=== PATIENT | male | born 1955 | race Caucasian/White ===

== ENCOUNTER 2022-03-10 10:51 | Outpatient (RCR) | payer OTHER, SELFPAY ==
--- NOTE | 2022-03-06 16:27 | ONC.NURNOTE ---
Authorization copied forward from Client Salon Coordinator. Patient: Dimitri Ventura Martin : 1955 Age/Sex: 66/M Unit#: [id number] Account#: Multiple Room/Bed: User: Wendi Ramirez Date: 09/30/21 10:33 Type: Eligibility Determination Note... Received request for prior auth for Whitney ([id number]). Per [employer] this has been approved for 4 doses. -10/03/2022. Auth # [id number]
[2022-03-10 11:19] LABS: Basophils Absolute Auto 0.01 K/uL (0.00-0.30); Basophils Percent Auto 0.2 % (0.0-3.0); Eosinophils Absolute Auto 0.13 K/uL (0.00-0.50); Eosinophils Percent Auto 2.7 % (0.0-7.0); Immature Granulocytes Abs Auto 0.01 K/uL (0.00-0.30); Lymphocytes Absolute Auto 1.21 K/uL (0.90-2.90); Lymphocytes Percent Auto 25.2 % (20-44); Mean Corpuscular HGB Conc 33 gm/dL (32-36); Mean Corpuscular Hemoglobin 31 pg (26-34); Mean Corpuscular Volume 93 fL (80-100); Monocytes Percent Auto 12.1 % (0.0-11.0); Neutrophils Absolute Auto 2.86 K/uL (1.7-7.0); Neutrophils Percent Auto 59.6 % (42.0-72.0); Platelet Count* 181 K/uL (140-440); Red Blood Count 4.21 m/uL (4.30-5.90)
[2022-03-10 11:21] LABS: Slide Review Reflex No
[2022-03-10 11:31] LABS: Albumin* 4.3 g/dL (3.3-5.0); Chloride* 109 mmol/L (96-114); Potassium* 4.1 mmol/L (3.6-5.1); Sodium* 137 mmol/L (135-149)
[2022-03-10 11:33] LABS: Creatinine* 0.8 mg/dL (0.5-1.5); Est. Creatinine Clearance* 126.06; Estimated Glomerular Filt Rate 97 ml/min
[2022-03-10 11:34] LABS: Alanine Aminotransferase* 21 U/L (4-50); Alkaline Phosphatase* 85 U/L (40-150); Aspartate Amino Transferase* 28 U/L (12-35); Bilirubin Total* 0.7 mg/dL (0.1-1.5); Blood Urea Nitrogen* 21 mg/dL (7-30); Carbon Dioxide* 23 mmol/L (20-32); Glucose* 144 mg/dL (60-115); Total Protein* 7.3 g/dL (6.0-8.3)
[2022-03-10 11:35] LABS: Calcium* 9.3 mg/dL (8.4-10.6)
--- NOTE | 2022-03-10 13:07 | ONC.NURNOTE ---
Lab results called to Dimitri as stable to be reviewed by Dr Khan at next clinic due for lab 04/07 and clinic 04/08 reports no specific concerns today reports painful lupron injection several doses ago
== END 2022-03-15 23:59 | disposition home or self-care (01) ==
LOC: CCIC 10:51
PROVIDERS: PCP Internal Medicine; Visit Provider Internal Medicine Hematology & Oncology
DX: C61 Malignant neoplasm of prostate (principal)
CPT/HCPCS: 36415; 80053; 85025

== ENCOUNTER 2022-05-08 12:03 | Outpatient (CLI) | payer OTHER, SELFPAY ==
[2022-05-08 17:00] LABS: Cholesterol* 160 mg/dL (90-199); Creatine Kinase* 213 U/L (54-186)
[2022-05-08 17:01] LABS: Alanine Aminotransferase* 18 U/L (4-50); HDL Cholesterol* 59 mg/dL (>=40); LDL Cholesterol Calculated 72 mg/dL (<100); Triglycerides* 143 mg/dL (40-149)
== END 2022-05-08 12:04 | disposition home or self-care (01) ==
PROVIDERS: PCP Internal Medicine; Visit Provider Internal Medicine Cardiovascular Disease
DX: I25.10 Atherosclerotic heart disease of native coronary artery without angina pectoris (principal); I49.8 Other specified cardiac arrhythmias; I10 Essential (primary) hypertension
CPT/HCPCS: 80061; 82550; 84460

== ENCOUNTER 2022-05-21 08:14 | Outpatient (RCR) | payer OTHER, SELFPAY ==
--- NOTE | 2022-05-19 09:00 | CRLHL7_ITS ---
For Patients: As a result of the Century Cures Act, medical imaging exams and procedure reports are released immediately into your electronic medical record. You may view this report before your referring provider. If you have questions, please contact your health care provider. MYOCARDIAL PERFUSION SCAN CLINICAL HISTORY: Coronary artery disease and arrhythmia. TECHNIQUE: (Resting SPECT and Stress Gated SPECT with wall motion and ejection fraction) Stress: Pharmacologic - Regadenoson (0.4 mg) Dose (Stress/Rest): 41.1 mCi / 43.1 mCi Tc-99m Sestamibi (two-day protocol) Comparison: None FINDINGS: There is good uptake of the radiotracer by the left ventricle. There is no left ventricular dilatation. No significant fixed or reversible changes are identified throughout the left ventricle. Gated images demonstrate left ventricular ejection fraction to visually calculate at 65 percent. There is no focal wall motion abnormality. IMPRESSION: 1. No evidence for significant myocardial ischemia or infarction. 2. Normal left ventricular ejection fraction is identified at 65 percent. This study was jointly reviewed by radiology and cardiology. Jelani Gómez M.D. Diagnostic/Nuclear Medicine Radiologist [facility] [email or web address] ANTUNEZ M.D. Department of Cardiology keyanna/Dictated by: Jelani Gómez MD @ 05/21/2022 2:31:00 PM (Electronically Signed)
[2022-05-21] MEDS: SODIUM CHLORIDE 0.9 % (FLUSH) 10 ML SYRINGE IVF (08:55)
[2022-05-21] MEDS: REGADENOSON 0.4 MG/5 ML SYRINGE IVP (08:55)
[2022-05-21 10:09] VITALS: BP 106/71; PULSE 92
--- NOTE | 2022-05-21 12:15 | PM.ST ---
Stress Test Note Date Date Seen: 05/21/22 Date of test: 05/21/22 Providers Referring provider: Man Arevalo Primary care provider: Jelani Hendrickson Stress test physician: Stella Chauhan Stress Test Note Stress test ordered: Lexiscan Indication for test: CAD Stress test medicine: Lexiscan Results discussion: Resting EKG: Sinus rhythm, 85 beats per minute. Appears that there is possibly nonspecific intra conduction delay. Resting blood pressure 127/86 Stress test: Plan patient had a non walking Lexiscan. Besides feeling some mild flushing he tolerated this quite well. There were no concerning EKG changes during monitoring, no rhythm is. No concerning blood pressure changes. Patient will have post stress imaging done. Impression: Subjectively negative, objectively negative EKG portion of this Lexiscan. Patient discharged to home after imaging was done. He will wait full formal report once this has been reviewed by Cardiology.
== END 2022-06-12 10:21 | disposition home or self-care (01) ==
LOC: STRESS 08:14
PROVIDERS: PCP Internal Medicine; Visit Provider Family Medicine
DX: I25.10 Atherosclerotic heart disease of native coronary artery without angina pectoris (principal); Z95.810 Presence of automatic (implantable) cardiac defibrillator; I49.9 Cardiac arrhythmia, unspecified; I10 Essential (primary) hypertension
CPT/HCPCS: 78452; 93016; 93017; A9500; J2785

== ENCOUNTER 2022-07-10 12:00 | Outpatient (RCR) | payer OTHER, SELFPAY ==
[2022-04-07 11:40] LABS: Basophils Absolute Auto 0.01 K/uL (0.00-0.30); Basophils Percent Auto 0.2 % (0.0-3.0); Eosinophils Absolute Auto 0.18 K/uL (0.00-0.50); Eosinophils Percent Auto 3.8 % (0.0-7.0); Hematocrit 38.5 % (37.0-53.0); Hemoglobin* 12.8 gm/dL (13.5-17.5); Immature Granulocytes Abs Auto 0.01 K/uL (0.00-0.30); Lymphocytes Absolute Auto 1.21 K/uL (0.90-2.90); Lymphocytes Percent Auto 25.5 % (20-44); Mean Corpuscular HGB Conc 33 gm/dL (32-36); Mean Corpuscular Hemoglobin 31 pg (26-34); Mean Corpuscular Volume 94 fL (80-100); Monocytes Percent Auto 10.5 % (0.0-11.0); Neutrophils Absolute Auto 2.84 K/uL (1.7-7.0); Neutrophils Percent Auto 59.8 % (42.0-72.0); Platelet Count* 192 K/uL (140-440); RDW Coefficient of Variation % 13.1 % (11.5-15.5); Red Blood Count 4.09 m/uL (4.30-5.90); White Blood Count* 4.75 K/uL (4.50-11.00)
[2022-04-07 11:51] LABS: Slide Review Reflex No
[2022-04-07 11:57] LABS: Albumin* 4.3 g/dL (3.3-5.0); Chloride* 103 mmol/L (96-114); Potassium* 4.3 mmol/L (3.6-5.1); Sodium* 138 mmol/L (135-149)
[2022-04-07 11:59] LABS: Bilirubin Total* 0.7 mg/dL (0.1-1.5); Creatinine* 0.8 mg/dL (0.5-1.5); Estimated Glomerular Filt Rate 97 ml/min
[2022-04-07 12:00] LABS: Alanine Aminotransferase* 23 U/L (4-50); Alkaline Phosphatase* 78 U/L (40-150); Aspartate Amino Transferase* 28 U/L (12-35); Blood Urea Nitrogen* 18 mg/dL (7-30); Calcium* 9.3 mg/dL (8.4-10.6); Carbon Dioxide* 25 mmol/L (20-32); Glucose* 206 mg/dL (60-115); Total Protein* 7.2 g/dL (6.0-8.3)
[2022-04-07 12:42] LABS: PSA Diagnostic* < 0.06 ng/mL (0.10-4.00)
[2022-04-08] MEDS: LEUPROLIDE ACETATE 22.5 MG (SQ) SYRINGE SUBCUT (15:39)
--- NOTE | 2022-04-27 10:07 | ONC.NURNOTE ---
Clarification needed for RX Xtandi with [facility] confirms Dimitri current dose of 120 mg/da (3X40mg) new RX needed for [facility] because they still have the 160 mg dose, and they state that the last RX dose change on 07/28/21 was not entered into their pharmacy patient has plenty of medication on hand since he has been receiving an extra #30 tabs each month
[2022-05-06 10:24] LABS: Basophils Absolute Auto 0.03 K/uL (0.00-0.30); Basophils Percent Auto 0.6 % (0.0-3.0); Eosinophils Absolute Auto 0.28 K/uL (0.00-0.50); Hematocrit 38.2 % (37.0-53.0); Hemoglobin* 12.8 gm/dL (13.5-17.5); Immature Granulocytes Abs Auto 0.01 K/uL (0.00-0.30); Lymphocytes Absolute Auto 1.17 K/uL (0.90-2.90); Lymphocytes Percent Auto 25.2 % (20-44); Mean Corpuscular HGB Conc 34 gm/dL (32-36); Mean Corpuscular Hemoglobin 31 pg (26-34); Mean Corpuscular Volume 94 fL (80-100); Monocytes Percent Auto 10.3 % (0.0-11.0); Neutrophils Absolute Auto 2.67 K/uL (1.7-7.0); Neutrophils Percent Auto 57.7 % (42.0-72.0); Platelet Count* 181 K/uL (140-440); RDW Coefficient of Variation % 12.6 % (11.5-15.5); Red Blood Count 4.08 m/uL (4.30-5.90); White Blood Count* 4.64 K/uL (4.50-11.00)
[2022-05-06 10:28] LABS: Slide Review Reflex No
[2022-05-06 10:44] LABS: Albumin* 4.3 g/dL (3.3-5.0); Chloride* 104 mmol/L (96-114); Sodium* 137 mmol/L (135-149)
[2022-05-06 10:45] LABS: Potassium* 4.3 mmol/L (3.6-5.1)
[2022-05-06 10:47] LABS: Alkaline Phosphatase* 87 U/L (40-150); Aspartate Amino Transferase* 24 U/L (12-35); Bilirubin Total* 0.6 mg/dL (0.1-1.5); Blood Urea Nitrogen* 18 mg/dL (7-30); Carbon Dioxide* 24 mmol/L (20-32); Creatinine* 0.8 mg/dL (0.5-1.5); Estimated Glomerular Filt Rate 97 ml/min; Total Protein* 7.1 g/dL (6.0-8.3)
[2022-05-06 10:48] LABS: Alanine Aminotransferase* 18 U/L (4-50); Calcium* 9.5 mg/dL (8.4-10.6); Glucose* 166 mg/dL (60-115)
[2022-06-03 10:21] LABS: Basophils Absolute Auto 0.03 K/uL (0.00-0.30); Basophils Percent Auto 0.6 % (0.0-3.0); Eosinophils Percent Auto 4.1 % (0.0-7.0); Hematocrit 38.4 % (37.0-53.0); Hemoglobin* 12.8 gm/dL (13.5-17.5); Immature Granulocytes Abs Auto 0.01 K/uL (0.00-0.30); Lymphocytes Absolute Auto 1.41 K/uL (0.90-2.90); Lymphocytes Percent Auto 28.7 % (20-44); Mean Corpuscular HGB Conc 33 gm/dL (32-36); Mean Corpuscular Hemoglobin 31 pg (26-34); Mean Corpuscular Volume 94 fL (80-100); Monocytes Percent Auto 11.4 % (0.0-11.0); Platelet Count* 187 K/uL (140-440); RDW Coefficient of Variation % 12.6 % (11.5-15.5); Red Blood Count 4.09 m/uL (4.30-5.90); White Blood Count* 4.91 K/uL (4.50-11.00)
[2022-06-03 10:22] LABS: Slide Review Reflex No
[2022-06-03 10:39] LABS: Albumin* 4.5 g/dL (3.3-5.0); Chloride* 101 mmol/L (96-114); Potassium* 4.3 mmol/L (3.6-5.1); Sodium* 136 mmol/L (135-149)
[2022-06-03 10:41] LABS: Creatinine* 0.7 mg/dL (0.5-1.5); Estimated Glomerular Filt Rate 101 ml/min
[2022-06-03 10:42] LABS: Alanine Aminotransferase* 19 U/L (4-50); Alkaline Phosphatase* 88 U/L (40-150); Aspartate Amino Transferase* 25 U/L (12-35); Bilirubin Total* 0.5 mg/dL (0.1-1.5); Blood Urea Nitrogen* 20 mg/dL (7-30); Calcium* 9.6 mg/dL (8.4-10.6); Carbon Dioxide* 25 mmol/L (20-32); Glucose* 151 mg/dL (60-115); Total Protein* 7.3 g/dL (6.0-8.3)
--- NOTE | 2022-06-03 14:19 | ONC.NURNOTE ---
Called and left a message on patients wifes phone. That his labs are normal. continue to take the 4 pills [160mg]. pt has a lab apt on 06/30 which will include a PSA. His last PSA was normal. Pt has a apt with Erin on 07/01.
[2022-06-30 10:48] LABS: Basophils Absolute Auto 0.02 K/uL (0.00-0.30); Basophils Percent Auto 0.4 % (0.0-3.0); Eosinophils Absolute Auto 0.18 K/uL (0.00-0.50); Eosinophils Percent Auto 3.6 % (0.0-7.0); Hematocrit 39.1 % (37.0-53.0); Hemoglobin* 12.8 gm/dL (13.5-17.5); Immature Granulocytes Abs Auto 0.01 K/uL (0.00-0.30); Immature Granulocytes Pct Auto 0.2 %; Lymphocytes Absolute Auto 1.09 K/uL (0.90-2.90); Lymphocytes Percent Auto 21.9 % (20-44); Mean Corpuscular HGB Conc 33 gm/dL (32-36); Mean Corpuscular Hemoglobin 31 pg (26-34); Mean Corpuscular Volume 94 fL (80-100); Monocytes Percent Auto 9.8 % (0.0-11.0); Neutrophils Absolute Auto 3.19 K/uL (1.7-7.0); Neutrophils Percent Auto 64.1 % (42.0-72.0); Platelet Count* 185 K/uL (140-440); RDW Coefficient of Variation % 12.5 % (11.5-15.5); Red Blood Count 4.14 m/uL (4.30-5.90); White Blood Count* 4.98 K/uL (4.50-11.00)
[2022-06-30 10:52] LABS: Slide Review Reflex No
[2022-06-30 11:14] LABS: Albumin* 4.4 g/dL (3.3-5.0)
[2022-06-30 11:15] LABS: Chloride* 103 mmol/L (96-114); Potassium* 4.1 mmol/L (3.6-5.1); Sodium* 137 mmol/L (135-149)
[2022-06-30 11:17] LABS: Aspartate Amino Transferase* 28 U/L (12-35); Bilirubin Total* 0.7 mg/dL (0.1-1.5); Carbon Dioxide* 25 mmol/L (20-32); Creatinine* 0.8 mg/dL (0.5-1.5); Estimated Glomerular Filt Rate 97 ml/min; Total Protein* 7.1 g/dL (6.0-8.3)
[2022-06-30 11:18] LABS: Alanine Aminotransferase* 26 U/L (4-50); Alkaline Phosphatase* 87 U/L (40-150); Blood Urea Nitrogen* 17 mg/dL (7-30); Calcium* 9.3 mg/dL (8.4-10.6); Glucose* 179 mg/dL (60-115)
[2022-06-30 11:51] LABS: PSA Diagnostic* < 0.06 ng/mL (0.10-4.00)
--- NOTE | 2022-07-02 16:05 | ONC.NURNOTE ---
[employer] patient assist for Xtandi re-enrollment forms and all needed documentation was received- as confirmed by [employer] today application to be reviewed by 2022
[2022-07-10 13:08] VITALS: BP 126/80; PULSE 81; RESP 20; TEMP 37; O2SAT 97
[2022-07-10] MEDS: LEUPROLIDE ACETATE 22.5 MG (SQ) SYRINGE SUBCUT (13:12)
== END 2022-10-04 23:59 | disposition home or self-care (01) ==
LOC: CCIC 12:00
PROVIDERS: PCP Internal Medicine; Referring Provider Internal Medicine; Visit Provider Internal Medicine Hematology & Oncology
DX: C61 Malignant neoplasm of prostate (principal); C79.51 Secondary malignant neoplasm of bone
CPT/HCPCS: 36415; 80053; 84153; 85025; 96372; 96401; 96413; 99212; 99213; 99214; J9217

== ENCOUNTER 2023-01-21 13:30 | Outpatient (RCR) | payer OTHER, SELFPAY ==
--- NOTE | 2022-10-16 13:42 | ONC.NURNOTE ---
GINGER was looking into coverage of his eligard injection and found that insurance is inactive. Radar Operator called spouse/patient and they note that they are working on getting ahold of someone about this with insurance. They will call us with insurance information once obtained.
--- NOTE | 2022-10-16 14:31 | URNOTE ---
Request received for authorization for Alban([id number]). Prior authorization is approved from 10/19/2022 to 10/20/2023 from [facility] via [employer] Rep. Princess Lockwood Ref#[id number].
[2022-10-19 14:25] LABS: Basophils Absolute Auto 0.02 K/uL (0.00-0.30); Basophils Percent Auto 0.4 % (0.0-3.0); Eosinophils Absolute Auto 0.19 K/uL (0.00-0.50); Eosinophils Percent Auto 3.5 % (0.0-7.0); Hematocrit 38.8 % (37.0-53.0); Immature Granulocytes Abs Auto 0.02 K/uL (0.00-0.30); Immature Granulocytes Pct Auto 0.4 %; Lymphocytes Absolute Auto 1.56 K/uL (0.90-2.90); Lymphocytes Percent Auto 28.8 % (20-44); Mean Corpuscular HGB Conc 34 gm/dL (32-36); Mean Corpuscular Hemoglobin 31 pg (26-34); Mean Corpuscular Volume 93 fL (80-100); Monocytes Percent Auto 8.7 % (0.0-11.0); Neutrophils Absolute Auto 3.16 K/uL (1.7-7.0); Neutrophils Percent Auto 58.2 % (42.0-72.0); Platelet Count* 174 K/uL (140-440); RDW Coefficient of Variation % 12.9 % (11.5-15.5); Red Blood Count 4.19 m/uL (4.30-5.90); White Blood Count* 5.42 K/uL (4.50-11.00)
[2022-10-19 14:37] LABS: Slide Review Reflex No
[2022-10-19 14:38] LABS: Albumin* 4.4 g/dL (3.3-5.0); Chloride* 108 mmol/L (96-114); Sodium* 137 mmol/L (135-149)
[2022-10-19 14:40] LABS: Bilirubin Total* 0.7 mg/dL (0.1-1.5); Carbon Dioxide* 24 mmol/L (20-32); Creatinine* 0.7 mg/dL (0.5-1.5); Estimated Glomerular Filt Rate 100 ml/min
[2022-10-19 14:41] LABS: Alanine Aminotransferase* 27 U/L (4-50); Alkaline Phosphatase* 81 U/L (40-150); Aspartate Amino Transferase* 25 U/L (12-35); Blood Urea Nitrogen* 15 mg/dL (7-30); Calcium* 9.4 mg/dL (8.4-10.6); Glucose* 179 mg/dL (60-115); Total Protein* 7.4 g/dL (6.0-8.3)
[2022-10-19] MEDS: LEUPROLIDE ACETATE 22.5 MG (SQ) SYRINGE SUBCUT (15:55)
[2022-10-19 16:21] LABS: PSA Diagnostic* < 0.06 ng/mL (0.10-4.00)
[2023-01-21 14:02] LABS: Basophils Absolute Auto 0.02 K/uL (0.00-0.30); Basophils Percent Auto 0.3 % (0.0-3.0); Eosinophils Absolute Auto 0.06 K/uL (0.00-0.50); Eosinophils Percent Auto 0.8 % (0.0-7.0); Hematocrit 40.5 % (37.0-53.0); Hemoglobin* 13.7 gm/dL (13.5-17.5); Immature Granulocytes Abs Auto 0.01 K/uL (0.00-0.30); Immature Granulocytes Pct Auto 0.1 %; Lymphocytes Percent Auto 19.6 % (20-44); Mean Corpuscular HGB Conc 34 gm/dL (32-36); Mean Corpuscular Hemoglobin 31 pg (26-34); Mean Corpuscular Volume 93 fL (80-100); Monocytes Percent Auto 8.1 % (0.0-11.0); Neutrophils Absolute Auto 5.17 K/uL (1.7-7.0); Neutrophils Percent Auto 71.1 % (42.0-72.0); Platelet Count* 169 K/uL (140-440); RDW Coefficient of Variation % 12.7 % (11.5-15.5); Red Blood Count 4.38 m/uL (4.30-5.90); White Blood Count* 7.28 K/uL (4.50-11.00)
[2023-01-21 14:07] LABS: Slide Review Reflex No
[2023-01-21 14:18] LABS: Albumin* 4.6 g/dL (3.3-5.0); Chloride* 106 mmol/L (96-114)
[2023-01-21 14:19] LABS: Potassium* 3.9 mmol/L (3.6-5.1); Sodium* 136 mmol/L (135-149)
[2023-01-21 14:21] LABS: Alkaline Phosphatase* 81 U/L (40-150); Aspartate Amino Transferase* 34 U/L (12-35); Blood Urea Nitrogen* 16 mg/dL (7-30); Carbon Dioxide* 20 mmol/L (20-32); Creatinine* 0.9 mg/dL (0.5-1.5); Estimated Glomerular Filt Rate 93 ml/min; Total Protein* 7.7 g/dL (6.0-8.3)
[2023-01-21 14:22] LABS: Alanine Aminotransferase* 32 U/L (4-50); Calcium* 9.7 mg/dL (8.4-10.6); Glucose* 159 mg/dL (60-115)
[2023-01-21 14:58] LABS: PSA Diagnostic* < 0.06 ng/mL (0.10-4.00)
[2023-01-21] MEDS: LEUPROLIDE ACETATE 22.5 MG (SQ) SYRINGE SUBCUT (15:08)
== END 2023-04-17 23:59 | disposition home or self-care (01) ==
LOC: CCIC 13:30
PROVIDERS: Physician Assistant; PCP Internal Medicine; Referring Provider Internal Medicine; Visit Provider Internal Medicine Hematology & Oncology
DX: C61 Malignant neoplasm of prostate (principal); C79.51 Secondary malignant neoplasm of bone; D72.819 Decreased white blood cell count, unspecified; R23.2 Flushing; I49.8 Other specified cardiac arrhythmias; F41.9 Anxiety disorder, unspecified
CPT/HCPCS: 36415; 80053; 84153; 85025; 96401; 99212; 99214; 99215; J9217

== ENCOUNTER 2023-10-11 13:32 | Outpatient (CLI) | payer OTHER, SELFPAY | END 2023-10-11 13:33 | disposition home or self-care (01) | LOC: RAD 13:34 | PROVIDERS: PCP Internal Medicine; Visit Provider Internal Medicine Cardiovascular Disease | DX: R06.00 Dyspnea, unspecified (principal); I25.10 Atherosclerotic heart disease of native coronary artery without angina pectoris | CPT/HCPCS: 93306 ==

== ENCOUNTER 2023-10-18 13:15 | Outpatient (RCR) | payer OTHER, SELFPAY ==
[2023-04-21 13:42] LABS: Basophils Absolute Auto 0.03 K/uL (0.00-0.30); Basophils Percent Auto 0.6 % (0.0-3.0); Eosinophils Absolute Auto 0.21 K/uL (0.00-0.50); Hematocrit 41.5 % (37.0-53.0); Hemoglobin* 13.6 gm/dL (13.5-17.5); Immature Granulocytes Abs Auto 0.04 K/uL (0.00-0.30); Immature Granulocytes Pct Auto 0.8 %; Lymphocytes Absolute Auto 1.56 K/uL (0.90-2.90); Lymphocytes Percent Auto 29.5 % (20-44); Mean Corpuscular HGB Conc 33 gm/dL (32-36); Mean Corpuscular Hemoglobin 32 pg (26-34); Mean Corpuscular Volume 97 fL (80-100); Monocytes Percent Auto 11.2 % (0.0-11.0); Neutrophils Absolute Auto 2.86 K/uL (1.7-7.0); Neutrophils Percent Auto 53.9 % (42.0-72.0); Platelet Count* 193 K/uL (140-440); RDW Coefficient of Variation % 12.7 % (11.5-15.5); Red Blood Count 4.29 m/uL (4.30-5.90); White Blood Count* 5.29 K/uL (4.50-11.00)
[2023-04-21 13:58] LABS: Chloride* 105 mmol/L (96-114); Slide Review Reflex No
[2023-04-21 13:59] LABS: Albumin* 4.5 g/dL (3.3-5.0); Potassium* 4.2 mmol/L (3.6-5.1); Sodium* 136 mmol/L (135-149)
[2023-04-21 14:02] LABS: Alanine Aminotransferase* 31 U/L (4-50); Alkaline Phosphatase* 67 U/L (40-150); Anion Gap 11 mEq/L (7-15); Aspartate Amino Transferase* 36 U/L (12-35); Bilirubin Total* 0.8 mg/dL (0.1-1.5); Blood Urea Nitrogen* 17 mg/dL (7-30); Calcium* 9.7 mg/dL (8.4-10.6); Carbon Dioxide* 20 mmol/L (20-32); Creatinine* 0.8 mg/dL (0.5-1.5); Estimated Glomerular Filt Rate 96 ml/min; Glucose* 115 mg/dL (60-115); Total Protein* 7.8 g/dL (6.0-8.3)
[2023-04-21 14:33] LABS: PSA Diagnostic* < 0.06 ng/mL (0.10-4.00)
[2023-04-21] MEDS: LEUPROLIDE ACETATE 22.5 MG (SQ) SYRINGE SUBCUT (15:02)
[2023-07-26 12:03] LABS: Basophils Absolute Auto 0.01 K/uL (0.00-0.30); Basophils Percent Auto 0.2 % (0.0-3.0); Eosinophils Absolute Auto 0.24 K/uL (0.00-0.50); Eosinophils Percent Auto 4.3 % (0.0-7.0); Hematocrit 41.7 % (37.0-53.0); Hemoglobin* 13.5 gm/dL (13.5-17.5); Immature Granulocytes Abs Auto 0.05 K/uL (0.00-0.30); Immature Granulocytes Pct Auto 0.9 %; Lymphocytes Absolute Auto 1.26 K/uL (0.90-2.90); Lymphocytes Percent Auto 22.7 % (20-44); Mean Corpuscular HGB Conc 32 gm/dL (32-36); Mean Corpuscular Hemoglobin 31 pg (26-34); Mean Corpuscular Volume 97 fL (80-100); Monocytes Percent Auto 9.4 % (0.0-11.0); Neutrophils Absolute Auto 3.46 K/uL (1.7-7.0); Neutrophils Percent Auto 62.5 % (42.0-72.0); Platelet Count* 132 K/uL (140-440); RDW Coefficient of Variation % 12.3 % (11.5-15.5); White Blood Count* 5.54 K/uL (4.50-11.00)
[2023-07-26 12:05] LABS: Slide Review Reflex No
[2023-07-26 12:20] LABS: Albumin* 4.6 g/dL (3.3-5.0); Chloride* 105 mmol/L (96-114); Sodium* 134 mmol/L (135-149)
[2023-07-26 12:21] LABS: Potassium* 4.3 mmol/L (3.6-5.1)
[2023-07-26 12:23] LABS: Bilirubin Total* 0.9 mg/dL (0.1-1.5); Creatinine* 0.8 mg/dL (0.5-1.5); Estimated Glomerular Filt Rate 96 ml/min
[2023-07-26 12:24] LABS: Alanine Aminotransferase* 29 U/L (4-50); Alkaline Phosphatase* 76 U/L (40-150); Anion Gap 11 mEq/L (7-15); Aspartate Amino Transferase* 32 U/L (12-35); Blood Urea Nitrogen* 16 mg/dL (7-30); Calcium* 9.1 mg/dL (8.4-10.6); Carbon Dioxide* 18 mmol/L (20-32); Glucose* 223 mg/dL (60-115); Total Protein* 7.5 g/dL (6.0-8.3)
[2023-07-26] MEDS: LEUPROLIDE ACETATE 22.5 MG (SQ) SYRINGE SUBCUT (13:00)
[2023-07-26 13:08] LABS: PSA Diagnostic* < 0.06 ng/mL (0.10-4.00)
--- NOTE | 2023-08-24 09:07 | ONC.NURNOTE ---
[facility] through 08/15/2024 patient notified
[2023-09-06 14:29] LABS: PSA Diagnostic* < 0.06 ng/mL (0.10-4.00)
--- NOTE | 2023-09-09 14:24 | ONC.NURNOTE ---
Xtandi 40 mg X 2 disp #60 with 3 refills called to [facility] as written by Dr Khan faxed rx was not received Rx written for #120- but pharmacy can only dispense 30 day supply
[2023-10-18 13:29] LABS: Basophils Absolute Auto 0.04 K/uL (0.00-0.30); Basophils Percent Auto 0.7 % (0.0-3.0); Eosinophils Absolute Auto 0.18 K/uL (0.00-0.50); Hematocrit 38.7 % (37.0-53.0); Hemoglobin* 12.8 gm/dL (13.5-17.5); Immature Granulocytes Abs Auto 0.01 K/uL (0.00-0.30); Immature Granulocytes Pct Auto 0.2 %; Lymphocytes Absolute Auto 1.93 K/uL (0.90-2.90); Lymphocytes Percent Auto 32.7 % (20-44); Mean Corpuscular HGB Conc 33 gm/dL (32-36); Mean Corpuscular Hemoglobin 31 pg (26-34); Mean Corpuscular Volume 93 fL (80-100); Monocytes Percent Auto 11.8 % (0.0-11.0); Neutrophils Absolute Auto 3.05 K/uL (1.7-7.0); Neutrophils Percent Auto 51.6 % (42.0-72.0); Platelet Count* 173 K/uL (140-440); RDW Coefficient of Variation % 13.2 % (11.5-15.5); Red Blood Count 4.18 m/uL (4.30-5.90); White Blood Count* 5.91 K/uL (4.50-11.00)
[2023-10-18 13:36] LABS: Slide Review Reflex No
[2023-10-18 13:43] LABS: Albumin* 4.4 g/dL (3.3-5.0); Chloride* 106 mmol/L (96-114)
[2023-10-18 13:44] LABS: Potassium* 3.9 mmol/L (3.6-5.1); Sodium* 138 mmol/L (135-149)
[2023-10-18 13:46] LABS: Anion Gap 9 mEq/L (7-15); Aspartate Amino Transferase* 27 U/L (12-35); Bilirubin Total* 0.5 mg/dL (0.1-1.5); Carbon Dioxide* 23 mmol/L (20-32); Creatinine* 0.7 mg/dL (0.5-1.5); Estimated Glomerular Filt Rate 100 ml/min
[2023-10-18 13:47] LABS: Alanine Aminotransferase* 24 U/L (4-50); Alkaline Phosphatase* 83 U/L (40-150); Blood Urea Nitrogen* 18 mg/dL (7-30); Calcium* 9.6 mg/dL (8.4-10.6); Glucose* 150 mg/dL (60-115); Total Protein* 7.6 g/dL (6.0-8.3)
[2023-10-18] MEDS: LEUPROLIDE ACETATE 22.5 MG (SQ) SYRINGE SUBCUT (14:05)
[2023-10-18 14:25] LABS: PSA Diagnostic* < 0.06 ng/mL (0.10-4.00)
--- NOTE | 2024-01-14 10:55 | URNOTE ---
Per Jerad at [facility], Prior auth is not required for Whitney ([id number]). Call ref #[id number]
== END 2023-10-18 23:59 | disposition home or self-care (01) ==
LOC: CCIC 13:15
PROVIDERS: PCP Internal Medicine; Referring Provider Internal Medicine; Visit Provider Internal Medicine Hematology & Oncology
DX: C61 Malignant neoplasm of prostate (principal); C79.51 Secondary malignant neoplasm of bone; R63.5 Abnormal weight gain; R60.9 Edema, unspecified; D70.9 Neutropenia, unspecified; I49.8 Other specified cardiac arrhythmias; Z95.810 Presence of automatic (implantable) cardiac defibrillator; F41.9 Anxiety disorder, unspecified
CPT/HCPCS: 36415; 80053; 84153; 85025; 96372; 96401; 99212; 99213; 99214; G0463; J9217

== ENCOUNTER 2023-10-19 07:56 | Outpatient (RCR) | payer OTHER, SELFPAY ==
--- NOTE | 2023-10-19 09:56 | W.PM.STED ---
Stress Test Note Date Date Seen: 10/19/23 Date of test: 10/19/23 Providers Referring provider: Guanako Camara Primary care provider: Jelani Hendrickson Stress test physician: Stella Chauhan Stress Test Note Stress test ordered: Lexiscan Indication for test: Atherosclerotic coronary artery disease Stress test medicine: Lexiscan Results discussion: Resting EKG: With sinus rhythm, 89 beats per minute. Resting blood pressure: 141/90 Stress test: Patient perform the Lexiscan via walking treadmill protocol. He felt his heart beat faster but not any pain with this. He completed the protocol without any difficulty. There was no arrhythmia, no ischemia seen on the EKG. He had artifact well walking. In recovery, no significant ischemic change noted. Blood pressure initial recovery was 161/109, did come down to 127/88 by the termination of monitoring. Patient had no significant symptoms during this test. Await nuclear images to couple this for a full formal diagnostic. Impression: Subjectively negative, objectively negative EKG portion of this Lexiscan. Follow up suggested: Patient will await the nuclear images to be read for full formal diagnostic. He will be discharged after his post rest images. He is currently in stable condition.
[2023-10-19 12:08] VITALS: BP 127/88; PULSE 99; RESP 18
[2023-10-19] MEDS: SODIUM CHLORIDE 0.9 % (FLUSH) 10 ML SYRINGE IVF (12:09)
[2023-10-19] MEDS: REGADENOSON 0.4 MG/5 ML SYRINGE IVP (12:09)
== END 2023-10-19 15:06 | disposition home or self-care (01) ==
LOC: STRESS 07:56
PROVIDERS: PCP Internal Medicine; Visit Provider Family Medicine
DX: I25.10 Atherosclerotic heart disease of native coronary artery without angina pectoris (principal)
CPT/HCPCS: 78452; 93016; 93017; A9500; J2785

== ENCOUNTER 2024-07-10 09:45 | Outpatient (RCR) | payer OTHER, SELFPAY ==
[2024-01-18 12:27] LABS: Basophils Absolute Auto 0.01 K/uL (0.00-0.30); Basophils Percent Auto 0.2 % (0.0-3.0); Eosinophils Absolute Auto 0.19 K/uL (0.00-0.50); Eosinophils Percent Auto 3.5 % (0.0-7.0); Hematocrit 39.7 % (37.0-53.0); Immature Granulocytes Abs Auto 0.02 K/uL (0.00-0.30); Immature Granulocytes Pct Auto 0.4 %; Lymphocytes Absolute Auto 1.66 K/uL (0.90-2.90); Lymphocytes Percent Auto 30.6 % (20-44); Mean Corpuscular HGB Conc 33 gm/dL (32-36); Mean Corpuscular Hemoglobin 31 pg (26-34); Mean Corpuscular Volume 96 fL (80-100); Monocytes Percent Auto 11.6 % (0.0-11.0); Neutrophils Absolute Auto 2.91 K/uL (1.7-7.0); Neutrophils Percent Auto 53.7 % (42.0-72.0); Platelet Count* 170 K/uL (140-440); RDW Coefficient of Variation % 12.9 % (11.5-15.5); Red Blood Count 4.15 m/uL (4.30-5.90); White Blood Count* 5.42 K/uL (4.50-11.00)
[2024-01-18 12:28] LABS: Albumin* 4.7 g/dL (3.3-5.0); Chloride* 105 mmol/L (96-114)
[2024-01-18 12:29] LABS: Potassium* 4.6 mmol/L (3.6-5.1); Sodium* 138 mmol/L (135-149)
[2024-01-18 12:30] LABS: Slide Review Reflex No
[2024-01-18 12:31] LABS: Anion Gap 3 mEq/L (7-15); Aspartate Amino Transferase* 30 U/L (12-35); Bilirubin Total* 0.9 mg/dL (0.1-1.5); Carbon Dioxide* 30 mmol/L (20-32); Creatinine* 0.8 mg/dL (0.5-1.5); Estimated Glomerular Filt Rate 96 ml/min
[2024-01-18 12:32] LABS: Alanine Aminotransferase* 28 U/L (4-50); Alkaline Phosphatase* 85 U/L (40-150); Blood Urea Nitrogen* 16 mg/dL (7-30); Calcium* 9.3 mg/dL (8.4-10.6); Glucose* 125 mg/dL (60-115); Total Protein* 7.9 g/dL (6.0-8.3)
[2024-01-18 13:04] LABS: PSA Diagnostic* < 0.06 ng/mL (0.10-4.00)
[2024-01-18] MEDS: LEUPROLIDE ACETATE 22.5 MG (SQ) SYRINGE SUBCUT (13:35)
--- NOTE | 2024-04-06 12:19 | ONC.NURNOTE ---
Patient's called today asking when patient is scheduled to be seen again and asking about a refill of his Xtandi. She reports the specialty pharmacy keeps calling stating they need a new prescription. Told them that patient is scheduled for labs, Dr. Khan, and his injection on 04/12. Spoke with M[facility] nurse navigator, she has a refill request for Dimitri and Dr. Khan has a refill request for him for the Xtandi. She stated that Dr. Khan will address it on Wednesday when she is back in the office. Updated patient and his about his Xtandi prescription, per his he has enough pills to get him to next week. Patient's called back shortly after initial call and asked if patient's Wednesday appt could be moved to Wednesday as she was gone on Thursday 04/12 and she wants to be here for his appt. There was a 10 am opening on Tuesday 04/10. Patient moved to that appt and updated that it would be a virtual appt. Advised him to come at 9 am for labs prior to his appt at 10 am. Both patient and verbalized understanding and ok with the plan. Old appts cancelled and new appts scheduled for 04/10, 9am labs, [address] Khan with injection to follow.
[2024-04-10 09:08] LABS: Basophils Absolute Auto 0.02 K/uL (0.00-0.30); Basophils Percent Auto 0.4 % (0.0-3.0); Eosinophils Absolute Auto 0.18 K/uL (0.00-0.50); Eosinophils Percent Auto 3.2 % (0.0-7.0); Hematocrit 41.4 % (37.0-53.0); Hemoglobin* 13.8 gm/dL (13.5-17.5); Immature Granulocytes Abs Auto 0.01 K/uL (0.00-0.30); Immature Granulocytes Pct Auto 0.2 %; Lymphocytes Absolute Auto 1.52 K/uL (0.90-2.90); Lymphocytes Percent Auto 26.8 % (20-44); Mean Corpuscular HGB Conc 33 gm/dL (32-36); Mean Corpuscular Hemoglobin 31 pg (26-34); Mean Corpuscular Volume 94 fL (80-100); Monocytes Percent Auto 10.1 % (0.0-11.0); Neutrophils Absolute Auto 3.37 K/uL (1.7-7.0); Neutrophils Percent Auto 59.3 % (42.0-72.0); Platelet Count* 165 K/uL (140-440); RDW Coefficient of Variation % 12.5 % (11.5-15.5); Red Blood Count 4.42 m/uL (4.30-5.90); White Blood Count* 5.67 K/uL (4.50-11.00)
[2024-04-10 09:14] LABS: Slide Review Reflex No
[2024-04-10 09:22] LABS: Albumin* 4.6 g/dL (3.3-5.0); Chloride* 108 mmol/L (96-114); Potassium* 4.1 mmol/L (3.6-5.1); Sodium* 139 mmol/L (135-149)
[2024-04-10 09:24] LABS: Anion Gap 9 mEq/L (7-15); Bilirubin Total* 0.8 mg/dL (0.1-1.5); Carbon Dioxide* 22 mmol/L (20-32); Creatinine* 0.9 mg/dL (0.5-1.5); Estimated Glomerular Filt Rate 92 ml/min
[2024-04-10 09:25] LABS: Alanine Aminotransferase* 26 U/L (4-50); Alkaline Phosphatase* 79 U/L (40-150); Aspartate Amino Transferase* 30 U/L (12-35); Blood Urea Nitrogen* 15 mg/dL (7-30); Glucose* 180 mg/dL (60-115); Total Protein* 7.7 g/dL (6.0-8.3)
[2024-04-10 09:26] LABS: Calcium* 9.8 mg/dL (8.4-10.6)
[2024-04-10 09:58] LABS: PSA Diagnostic* < 0.06 ng/mL (0.10-4.00)
[2024-04-10] MEDS: LEUPROLIDE ACETATE 22.5 MG (SQ) SYRINGE SUBCUT (11:02)
--- NOTE | 2024-05-30 12:51 | ONC.NURNOTE ---
informed office that there are no further [facility] [employer] Machine Operator phoned [facility] as a RX with refills was faxed on 04/10/24 [facility] did not receive this fax and a verbal RX was given to pharmacist per the prescription Xtandi 40 mg caps 1 daily disp #30 with 3 refills Patient will be contacted to set up delivery
[2024-07-10 09:57] LABS: Basophils Absolute Auto 0.02 K/uL (0.00-0.30); Basophils Percent Auto 0.3 % (0.0-3.0); Eosinophils Absolute Auto 0.25 K/uL (0.00-0.50); Eosinophils Percent Auto 4.2 % (0.0-7.0); Hematocrit 41.2 % (37.0-53.0); Hemoglobin* 13.6 gm/dL (13.5-17.5); Lymphocytes Absolute Auto 1.51 K/uL (0.90-2.90); Lymphocytes Percent Auto 25.6 % (20-44); Mean Corpuscular HGB Conc 33 gm/dL (32-36); Mean Corpuscular Hemoglobin 32 pg (26-34); Mean Corpuscular Volume 97 fL (80-100); Monocytes Percent Auto 7.5 % (0.0-11.0); Neutrophils Absolute Auto 3.68 K/uL (1.7-7.0); Neutrophils Percent Auto 62.4 % (42.0-72.0); Platelet Count* 160 K/uL (140-440); RDW Coefficient of Variation % 12.8 % (11.5-15.5); Red Blood Count 4.27 m/uL (4.30-5.90)
[2024-07-10 10:05] LABS: Slide Review Reflex No
[2024-07-10 10:14] LABS: Albumin* 4.5 g/dL (3.3-5.0); Chloride* 105 mmol/L (96-114)
[2024-07-10 10:15] LABS: Potassium* 3.9 mmol/L (3.6-5.1); Sodium* 136 mmol/L (135-149)
[2024-07-10 10:17] LABS: Alkaline Phosphatase* 98 U/L (40-150); Anion Gap 11 mEq/L (7-15); Aspartate Amino Transferase* 35 U/L (12-35); Bilirubin Total* 0.6 mg/dL (0.1-1.5); Blood Urea Nitrogen* 20 mg/dL (7-30); Carbon Dioxide* 20 mmol/L (20-32); Creatinine* 0.9 mg/dL (0.5-1.5); Est. Creatinine Clearance* 67.45; Estimated Glomerular Filt Rate 92 ml/min; Total Protein* 7.5 g/dL (6.0-8.3)
[2024-07-10 10:18] LABS: Alanine Aminotransferase* 34 U/L (4-50); Calcium* 9.4 mg/dL (8.4-10.6); Glucose* 224 mg/dL (60-115)
[2024-07-10 10:57] LABS: PSA Diagnostic* < 0.06 ng/mL (0.10-4.00)
[2024-07-10] MEDS: LEUPROLIDE ACETATE 22.5 MG (SQ) SYRINGE SUBCUT (12:17)
--- NOTE | 2024-07-10 13:58 | ONC.NURNOTE ---
Patient's called and said they forgot to get a copy of Dimitri's lab work when they were in clinic today. Requested to have labs mailed to them. Labs printed and placed in envelope and placed in delivery and mail sorter to be sent.
== END 2024-07-16 23:59 | disposition home or self-care (01) ==
LOC: CCIC 09:45
PROVIDERS: Internal Medicine Hematology & Oncology; PCP Internal Medicine; Referring Provider Internal Medicine; Visit Provider Physician Assistant
DX: C61 Malignant neoplasm of prostate (principal); C79.51 Secondary malignant neoplasm of bone; Z79.818 Long term (current) use of other agents affecting estrogen receptors and estrogen levels; E66.9 Obesity, unspecified; N62 Hypertrophy of breast; R60.0 Localized edema; Z79.82 Long term (current) use of aspirin; Z87.891 Personal history of nicotine dependence; F10.11 Alcohol abuse, in remission; R73.03 Prediabetes; B18.2 Chronic viral hepatitis C; I49.8 Other specified cardiac arrhythmias; Z95.810 Presence of automatic (implantable) cardiac defibrillator
CPT/HCPCS: 36415; 80053; 80061; 84153; 85025; 96401; 96402; 99214; 99215; G0463; J9217

== ENCOUNTER 2025-01-10 12:45 | Outpatient (RCR) | payer OTHER, SELFPAY ==
[2024-10-09 10:45] LABS: Albumin* 4.4 g/dL (3.3-5.0); Chloride* 105 mmol/L (96-114); Hematocrit 39.4 % (37.0-53.0); Hemoglobin* 13.1 gm/dL (13.5-17.5); Immature Granulocytes Abs Auto 0.01 K/uL (0.00-0.30); Immature Granulocytes Pct Auto 0.2 %; Lymphocytes Absolute Auto 1.48 K/uL (0.90-2.90); Mean Corpuscular HGB Conc 33 gm/dL (32-36); Mean Corpuscular Hemoglobin 31 pg (26-34); Mean Corpuscular Volume 94 fL (80-100); Potassium* 4.1 mmol/L (3.6-5.1); RDW Coefficient of Variation % 12.5 % (11.5-15.5); Red Blood Count 4.21 m/uL (4.30-5.90); Sodium* 138 mmol/L (135-149); White Blood Count* 5.61 K/uL (4.50-11.00)
[2024-10-09 10:47] LABS: Anion Gap 10 mEq/L (7-15); Carbon Dioxide* 23 mmol/L (20-32); Cholesterol* 143 mg/dL (90-199); Creatinine* 0.7 mg/dL (0.5-1.5); Estimated Glomerular Filt Rate 99 ml/min
[2024-10-09 10:48] LABS: Alanine Aminotransferase* 26 U/L (4-50); Alkaline Phosphatase* 73 U/L (40-150); Aspartate Amino Transferase* 24 U/L (12-35); Bilirubin Total* 0.8 mg/dL (0.1-1.5); Blood Urea Nitrogen* 16 mg/dL (7-30); Calcium* 9.1 mg/dL (8.4-10.6); Glucose* 119 mg/dL (60-115); Total Protein* 7.1 g/dL (6.0-8.3); Triglycerides* 123 mg/dL (40-149)
[2024-10-09 10:49] LABS: HDL Cholesterol* 54 mg/dL (>=40)
[2024-10-09 10:56] LABS: Slide Review Reflex No
[2024-10-09 11:21] LABS: PSA Diagnostic* < 0.06 ng/mL (0.10-4.00)
[2024-10-09] MEDS: LEUPROLIDE ACETATE (ELIGARD) 22.5 MG INJ SUBCUT (12:36)
[2025-01-10 12:58] LABS: Hematocrit 40.0 % (37.0-53.0); Hemoglobin* 13.2 gm/dL (13.5-17.5); Immature Granulocytes Abs Auto 0.01 K/uL (0.00-0.30); Immature Granulocytes Pct Auto 0.2 %; Lymphocytes Absolute Auto 1.53 K/uL (0.90-2.90); Mean Corpuscular HGB Conc 33 gm/dL (32-36); Mean Corpuscular Hemoglobin 31 pg (26-34); Mean Corpuscular Volume 94 fL (80-100); RDW Coefficient of Variation % 12.9 % (11.5-15.5); Red Blood Count 4.27 m/uL (4.30-5.90); White Blood Count* 5.30 K/uL (4.50-11.00)
[2025-01-10 13:01] LABS: Slide Review Reflex No
[2025-01-10 13:06] LABS: Albumin* 4.4 g/dL (3.3-5.0); Chloride* 107 mmol/L (96-114); Potassium* 4.3 mmol/L (3.6-5.1); Sodium* 139 mmol/L (135-149)
[2025-01-10 13:09] LABS: Alanine Aminotransferase* 26 U/L (4-50); Alkaline Phosphatase* 73 U/L (40-150); Anion Gap 7 mEq/L (7-15); Aspartate Amino Transferase* 29 U/L (12-35); Bilirubin Total* 0.6 mg/dL (0.1-1.5); Blood Urea Nitrogen* 19 mg/dL (7-30); Calcium* 9.4 mg/dL (8.4-10.6); Carbon Dioxide* 25 mmol/L (20-32); Creatinine* 0.8 mg/dL (0.5-1.5); Est. Creatinine Clearance* 66.50; Estimated Glomerular Filt Rate 95 ml/min; Glucose* 129 mg/dL (60-115); Total Protein* 7.4 g/dL (6.0-8.3)
[2025-01-10 13:45] LABS: PSA Diagnostic* < 0.06 ng/mL (0.10-4.00)
[2025-01-10] MEDS: LEUPROLIDE ACETATE (ELIGARD) 22.5 MG INJ SUBCUT (14:31)
== END 2025-04-07 23:59 | disposition home or self-care (01) ==
LOC: CCIC 12:45
PROVIDERS: Physician Assistant; PCP Internal Medicine; Referring Provider Internal Medicine; Visit Provider Internal Medicine Hematology & Oncology
DX: C61 Malignant neoplasm of prostate (principal); C79.51 Secondary malignant neoplasm of bone; R60.9 Edema, unspecified; Z95.810 Presence of automatic (implantable) cardiac defibrillator; D72.819 Decreased white blood cell count, unspecified; R63.5 Abnormal weight gain; Z72.0 Tobacco use
CPT/HCPCS: 36415; 80053; 80061; 83735; 84153; 85025; 96402; 99214; 99215; G0463; J9217

== ENCOUNTER 2025-06-21 10:40 | Outpatient (CLI) | payer OTHER, SELFPAY | END 2025-06-21 10:41 | disposition home or self-care (01) | PROVIDERS: PCP Internal Medicine; Visit Provider Internal Medicine | DX: E11.9 Type 2 diabetes mellitus without complications (principal) | CPT/HCPCS: 80053; 80061 ==